=== PATIENT | female | born 1960 | race African-American/Black ===

== ENCOUNTER 2016-12-25 22:01 | Emergency (ER) | payer MEDICARE, OTHER ==
[~2016-12-25] VITALS: Ht 170.2 cm; Wt 79.4 kg
[2016-12-26 02:42] VITALS: BP 159/80
--- NOTE | 2016-12-27 14:53 | Emergency Room Report ---
History of Present Illness General Chief Complaint: Skin Rash/Abscess Source: Patient Present Illness HPI 56-year-old female presents ED for evaluation. Patient states she has multiple ulcers on her arms. Went to a clinic and was told to come the ER for further evaluation. Was told that she may have "flesh eating bacteria". Patient states she feels okay. Denies any fevers or chills. Denies pain. Patient admits to injecting drugs underneath the skin. Patient states that she has been on multiple antibiotics without resolution of the ulcers. No other aggravating relieving factors. Denies any other associated symptom Allergies: Coded Allergies: No Known Allergies (Unverified , 12/25/16) Patient History Past Medical History: none Past Surgical History: none Pertinent Family History: none Social History: Reports: drug use, Denies: alcohol use, smoking Last Menstrual Period: NONE Now: No Immunizations: UTD Reviewed Nursing Documentation: PMH: Agreed, PSxH: Agreed Nursing Documentation-PMH Hx Hypertension: Yes Review of Systems All Other Systems: negative except mentioned in HPI Physical Exam Vital Signs Date Time Temp Pulse Resp B/P Pulse Ox O2 Delivery O2 Flow Rate FiO2 12/25/16 22:07 97.9 113 18 159/80 95 Room Air Sp02 EP Interpretation: reviewed, normal General Appearance: no apparent distress, alert, GCS 15, non-toxic Head: normocephalic Eyes: bilateral eye PERRL, bilateral eye normal inspection ENT: normal ENT inspection Neck: normal inspection Respiratory: chest non-tender, lungs clear, normal breath sounds, speaking full sentences Cardiovascular #1: regular rate, rhythm, no edema Gastrointestinal: normal bowel sounds, non tender, soft, non-distended, no guarding, no rebound Rectal: deferred Genitourinary: no CVA tenderness Musculoskeletal: normal range of motion, non-tender, other - no crepitus\\ Neurologic: alert, oriented x3, responsive, motor strength/tone normal, sensory intact, speech normal Psychiatric: normal inspection Skin: other - multiple ulcerations noted to bilateral arms. in multiple stages of healing. non-erythematous. no discharge. no crepitus. Lymphatic: normal inspection Medical Decision Making Diagnostic Impression: Primary Impression: Abscess Additional Impression: Drug abuse ER Course 56-year-old female presents to ED with multiple ulcers noted to bilateral arms. Not resolving with antibiotics Differential-abscess, cellulitis, dermatitis Placed on chair. After initial history physical exam reveals a middle-aged female in no acute distress. On exam there are multiple ulcers noted to bilateral arms. In multiple stages of healing. Some appear fresh. No fluctuance or discharge. Patient appears well and nontoxic I explained to the patient given chronicity of symptoms I do not suspect "flesh eating bacteria". She also admits that some of the ulcers are new from recent injecting. The older ulcers do appear to be healing with abx I did want to check some blood work and provide some antibiotics here. Patient eloped from ER prior to IV placement or blood draw Last Vital Signs Date Time Temp Pulse Resp B/P Pulse Ox O2 Delivery O2 Flow Rate FiO2 12/25/16 22:07 97.9 113 18 159/80 95 Room Air Status: unchanged Disposition: ELOPED Condition: Stable Referrals: NOT CHOSEN ALLISON/,REFERRING (PCP) BRENNA IBANEZ M.D. December 27, 2016 14:53
== END 2016-12-26 02:42 | disposition left against medical advice (07) ==
LOC: EMR 22:40
DX: L03.114 Cellulitis of left upper limb (principal); L03.113 Cellulitis of right upper limb; L98.499 Non-pressure chronic ulcer of skin of other sites with unspecified severity; F19.10 Other psychoactive substance abuse, uncomplicated; I10 Essential (primary) hypertension
CPT/HCPCS: 99282

== ENCOUNTER 2017-05-30 18:47 | Emergency (ER) | payer MEDICARE, MEDICAID ==
[~2017-05-30] VITALS: Ht 170.2 cm; Wt 79.4 kg
[2017-05-30 20:40] VITALS: BP 163/85
--- NOTE | 2017-05-30 20:43 | Emergency Room Report ---
History of Present Illness General Chief Complaint: Skin Rash/Abscess Present Illness HPI 57 YO Female presents to the ED c/o 05/22 in severity progressive pain, swelling , and erythema of right forearm/hand x 3 days s/p IVDU. denies fevers or chills. Pt reports hx of Hep C. Denies fevers, chills, N/V. pt. denies trauma or fall. denies extremity weakness. Pt reports she has had tetanus within the past 5 years as she has had previous I & D procedures in that timeframe, pt. does not know the exact date. Denies numbness tingling or loss of sensation or gross motor movements of the extremities, incontinence of bowel or bladder. Denies CP, Palpitations, LOC, AMS, dizziness, Changes in Vision, Sensation, paresthesias, or a sudden severe headache. Allergies: Coded Allergies: No Known Allergies (Unverified , 12/25/16) Patient History Past Medical History: see triage record Past Surgical History: none Social History: Reports: drug use - IV opiates Now: No Reviewed Nursing Documentation: PMH: Agreed, PSxH: Agreed Nursing Documentation-PMH Hx Hypertension: Yes Review of Systems All Other Systems: negative except mentioned in HPI Physical Exam Vital Signs Date Time Temp Pulse Resp B/P (MAP) Pulse Ox O2 Delivery O2 Flow Rate FiO2 05/30/17 18:51 98.1 99 20 163/85 99 Room Air Sp02 EP Interpretation: reviewed, normal General Appearance: no apparent distress, alert, GCS 15, non-toxic Head: normocephalic, atraumatic Eyes: bilateral eye normal inspection, bilateral eye PERRL ENT: hearing grossly normal, normal voice Neck: full range of motion Respiratory: lungs clear, normal breath sounds, speaking full sentences Cardiovascular #1: regular rate, rhythm, normal capillary refill Rectal: deferred Musculoskeletal: back normal, gait/station normal, normal range of motion, inflammation - right dorsal forearm/wrist, erythema, increased temperature to palpation. , tender - superficial ttp to area of erythema and increased temperature of the dorsal right forearm/wrist. Neurologic: alert, oriented x3, responsive, motor strength/tone normal, sensory intact, normal gait, speech normal Psychiatric: judgement/insight normal, memory normal, mood/affect normal Skin: warm/dry, well hydrated, other - erythema, increased temperature to palpation, swelling noted to the distal dorsal right forearm and lateral right wrist non-circumfrential, no palpable fluctuance, no blisters, small 0.3cm superficial abrasion noted. Lymphatic: no adenopathy Medical Decision Making PA Attestation Dr. Perera is my supervising Physician whom patient management has been discussed with. Diagnostic Impression: Primary Impression: Cellulitis Qualified Codes: L03.113 - Cellulitis of right upper limb ER Course 57 YO Female presents to the ED c/o 05/22 in severity progressive pain, swelling , and erythema of right forearm/hand x 3 days s/p IVDU. denies fevers or chills. Pt reports hx of Hep C. Denies fevers, chills, N/V. pt. denies trauma or fall. denies extremity weakness. Pt reports she has had tetanus within the past 5 years as she has had previous I & D procedures in that timeframe, pt. does not know the exact date. Denies numbness tingling or loss of sensation or gross motor movements of the extremities, incontinence of bowel or bladder. Denies CP, Palpitations, LOC, AMS, dizziness, Changes in Vision, Sensation, paresthesias, or a sudden severe headache. Ddx considered but are not limited to cellulitis, lymphangitis, nec. fasciitis, musculoskeletal injury- fracture, d/L, gout just to name a few Vital signs: are WNL, pt. is afebrile H&PE are most consistent with cellulitis of the right wrist/forearm, no palpable fluctuance that would warrant incision. --erythema, increased temperature to palpation, swelling noted to the distal dorsal right forearm and lateral right wrist non-circumfrential, no palpable fluctuance, no blisters, small 0.3cm superficial abrasion noted. ORDERS: none required at this time, the diagnosis is clinical ED INTERVENTIONS: -Keflex PO -Bactrim PO -IBU PO -Pt is given strict ED return precautions for worsening of her current symptoms , or new symptoms. pt. is instructed to keep a close eye for progression of erythema. d/w pt. to follow up with PMD within 48 hours or return immediately to ED with any changes in her condition other than improvement. DISCHARGE: At this time pt. is stable for d/c to home. Will provide printed patient care instructions, and any necessary prescriptions. Care plan and follow up instructions have been discussed with the patient prior to discharge. Last Vital Signs Date Time Temp Pulse Resp B/P (MAP) Pulse Ox O2 Delivery O2 Flow Rate FiO2 05/30/17 18:51 98.1 99 20 163/85 99 Room Air Disposition: HOME, SELF-CARE Condition: Stable Scripts Ibuprofen* (MOTRIN*) 600 Mg Tablet 600 MG ORAL THREE TIMES A DAY, #30 TAB 0 Refills Prov: Kitty Lagos 05/30/17 Mupirocin Calcium (Bactroban) 15 Gm Cream..g. 1 APPLIC TOPIC THREE TIMES A DAY, #15 GM Prov: Kitty Lagos 05/30/17 Trimethoprim/Sulfamethoxazole 160/800* (BACTRIM DS TABLET*) 1 Each Tablet 1 TAB ORAL DAILY for 7 Days, #14 TAB Prov: Kitty Lagos 05/30/17 Cephalexin* (KEFLEX*) 500 Mg Capsule 500 MG ORAL EVERY 12 HOURS for 7 Days, #14 CAP 0 Refills Prov: Kitty Lagos 05/30/17 Referrals: NON PHYSICIAN (PCP) Patient Instructions: Cellulitis, [id number] Additional Instructions: Take medications as directed. Follow up with a Primary Care Provider within 48 hours, even if your symptoms have resolved. --Please review list of primary care clinics, if you do not already have a primary care provider Return sooner to ED if new symptoms occur, or current symptoms become worse. - Please note that this Emergency Department Report was dictated using [employer] mixer technology software, occasionally this can lead to erroneous entry secondary to interpretation by the dictation equipment. Kitty Lagos May 30, 2017 20:43
[2017-05-30] MEDS ORDERED: Bactrim DS (160mg/800mg) tab ORAL ONE (20:45)
[2017-05-30] MEDS ORDERED: Cephalexin 500mg cap ORAL ONE (20:45)
[2017-05-30] MEDS ORDERED: CEPHALEXIN500 MG ORAL (20:45)
[2017-05-30] MEDS ORDERED: BACTRIM DS TAB1 EAC1 ORAL (20:45)
[2017-05-30] MEDS ORDERED: BACTROBAN CR1 APPLIC TOPIC (20:45)
[2017-05-30] MEDS ORDERED: IBUPROFEN600 MG ORAL (20:49)
[2017-05-30 21:01] VITALS: BP 145/82
== END 2017-05-30 21:03 | disposition home or self-care (01) ==
LOC: EMR 20:27
DX: L03.113 Cellulitis of right upper limb (principal)
CPT/HCPCS: 99284

== ENCOUNTER 2017-06-09 17:22 | Emergency (ER) | payer MEDICARE, MEDICAID ==
[~2017-06-09] VITALS: Ht 170.2 cm; Wt 79.4 kg
[~2017-06-09 17:22] MED LIST: BACTRIM DS TAB1 EAC1 ORAL; BACTROBAN CR1 APPLIC TOPIC; CEPHALEXIN500 MG ORAL; IBUPROFEN600 MG ORAL
[2017-06-09] MEDS ORDERED: Tetanus/Diptheria/Pertussis Vaccine 0.5ml Syr IM ONE (18:15)
--- NOTE | 2017-06-09 18:25 | Emergency Room Report ---
History of Present Illness General Chief Complaint: Back Pain-No Injury Present Illness HPI 57-year-old female presents to the emergency department complaining of back pain that is 8/10 in severity located on the right side and radiates down into the right thigh intermittently x3 months with progression infrequency this past month. Patient reports fall 3 months ago but she was never evaluated for. Patient denies previous back injury. denies neck pain/stiffness or ALMEIDA. Denies recent spinal procedures, history of neoplastic disease, fevers, chills, abdominal pain, nausea, vomiting. Patient also reports continued swelling and some erythema to the right forearm there was previously diagnosed as cellulitis status post IV heroin use approximately one week ago. Patient still has one more day of antibiotic left. Patient reports symptoms are resolving however believes that additional antibiotics may be required. She denies discharge, crusting, bleeding, or open wound that is progressing in size. She states that on previous visit she believed that she had her tetanus however after thinking more about it she believes she may not be up to date. Denies numbness tingling or loss of sensation or gross motor movements of the extremities, incontinence of bowel or bladder. Denies CP, Palpitations, LOC, AMS, dizziness, Changes in Vision, Sensation, paresthesias, or a sudden severe headache. Allergies: Coded Allergies: No Known Allergies (Unverified , 12/25/16) Patient History Past Medical History: see triage record Past Surgical History: none Pertinent Family History: none Social History: Reports: drug use - IV heroin Now: No Reviewed Nursing Documentation: PMH: Agreed, PSxH: Agreed Nursing Documentation-PMH Hx Hypertension: Yes Review of Systems All Other Systems: negative except mentioned in HPI Physical Exam Vital Signs Date Time Temp Pulse Resp B/P (MAP) Pulse Ox O2 Delivery O2 Flow Rate FiO2 06/09/17 17:36 97.9 98 16 138/84 95 Room Air Sp02 EP Interpretation: reviewed, normal General Appearance: no apparent distress, alert, GCS 15, non-toxic Head: normocephalic, atraumatic Eyes: bilateral eye normal inspection, bilateral eye PERRL ENT: hearing grossly normal, normal voice Neck: full range of motion, no bony tend Respiratory: lungs clear, normal breath sounds, speaking full sentences Cardiovascular #1: regular rate, rhythm Gastrointestinal: non tender, soft, no guarding Rectal: deferred Genitourinary: no CVA tenderness Musculoskeletal: back normal, gait/station normal, normal range of motion, other - TTP to the right forearm, erythema and mild increased temperature in palpation noted, some induration, no fluctuance. , tender - Right lumbar paraspinal TTP to the musculature, and upper right glute, no midline spinal ttp , no obvious deformity, no evidence of infection. Neurologic: alert, oriented x3, responsive, motor strength/tone normal, sensory intact, speech normal Skin: no rash, warm/dry, well hydrated, other - TTP to the right forearm, erythema and mild increased temperature in palpation noted, some induration, no fluctuance. Medical Decision Making PA Attestation Dr. Perera is my supervising Physician whom patient management has been discussed with. Diagnostic Impression: Primary Impression: Sciatic nerve pain Qualified Codes: M54.31 - Sciatica, right side Additional Impression: Cellulitis of arm, right ER Course 57-year-old female presents to the emergency department complaining of back pain that is 8/10 in severity located on the right side and radiates down into the right thigh intermittently x3 months with progression infrequency this past month. Patient reports fall 3 months ago but she was never evaluated for. Patient denies previous back injury. denies neck pain/stiffness or ALMEIDA. Denies recent spinal procedures, history of neoplastic disease, fevers, chills, abdominal pain, nausea, vomiting. Patient also reports continued swelling and some erythema to the right forearm there was previously diagnosed as cellulitis status post IV heroin use approximately one week ago. Patient still has one more day of antibiotic left. Patient reports symptoms are resolving however believes that additional antibiotics may be required. She denies discharge, crusting, bleeding, or open wound that is progressing in size. She states that on previous visit she believed that she had her tetanus however after thinking more about it she believes she may not be up to date. Denies numbness tingling or loss of sensation or gross motor movements of the extremities, incontinence of bowel or bladder. Denies CP, Palpitations, LOC, AMS, dizziness, Changes in Vision, Sensation, paresthesias, or a sudden severe headache. Ddx considered but are not limited to Fracture, dislocation, contusion, epidural abscess, Sprain/Strain/Spasm, cellulitis, abscess Vital signs: are WNL, pt. is afebrile H&PE are most consistent with sciatica Pt. unable to tolerate straight leg raise. she is ambulatory, and has FROM with pain in some positions. ORDERS: X-ray not required at this time, no spinous process tenderness ED INTERVENTIONS: IM Toradol 60mg. Re-Evaluation: pt. states his pain has subsided with ED interventions DISCHARGE: At this time pt. is stable for d/c to home. Will provide printed patient care instructions, and any necessary prescriptions. Care plan and follow up instructions have been discussed with the patient prior to discharge. Last Vital Signs Date Time Temp Pulse Resp B/P (MAP) Pulse Ox O2 Delivery O2 Flow Rate FiO2 06/09/17 17:36 97.9 98 16 138/84 95 Room Air Disposition: HOME, SELF-CARE Condition: Stable Scripts Methocarbamol* (ROBAXIN*) 500 Mg Tablet 1000 MG PO TID for 7 Days, #14 TAB 0 Refills Prov: Kitty Lagos 06/09/17 Clindamycin Hcl (CLEOCIN HCL) 300 Mg Capsule 300 MG PO QID for 7 Days, #14 CAP Prov: Kitty Lagos 06/09/17 Referrals: NON PHYSICIAN (PCP) Patient Instructions: Back Pain, Adult, Cellulitis, Sciatica Additional Instructions: Take medications as directed. Follow up with a Primary Care Provider in 3-5 days, MRI may be indicated to fully evaluate the cause for your symptoms --Please review list of primary care clinics, if you do not already have a primary care provider Return sooner to ED if new symptoms occur, or current symptoms become worse. Do not drink alcohol, drive, or operate heavy machinery while taking Muscle Relaxer : Robaxin as this may cause drowsiness. - Please note that this Emergency Department Report was dictated using [employer] technology software, occasionally this can lead to erroneous entry secondary to interpretation by the dictation equipment. Kitty Lagos Jun 09, 2017 18:25
[2017-06-09] MEDS ORDERED: ROBAXIN500 MG PO (18:27)
[2017-06-09] MEDS ORDERED: CLEOCIN HCL300 MG PO (18:27)
[2017-06-09] MEDS ORDERED: Ketorolac 60mg Inj IM ONE (18:30)
[2017-06-09 18:51] VITALS: BP 125/80
== END 2017-06-09 18:51 | disposition home or self-care (01) ==
LOC: EMR 18:00
DX: M54.31 Sciatica, right side (principal); L03.113 Cellulitis of right upper limb; Z23 Encounter for immunization; I10 Essential (primary) hypertension; F11.90 Opioid use, unspecified, uncomplicated
CPT/HCPCS: 90471; 90715; 96372; 99283

== ENCOUNTER 2018-04-30 21:39 | Emergency (ER) | payer MEDICARE, MEDICAID ==
[~2018-04-30] VITALS: Ht 170.2 cm; Wt 79.4 kg
[~2018-04-30 21:39] MED LIST changes: +CLEOCIN HCL300 MG PO; +ROBAXIN500 MG PO
[2018-04-30 22:05] VITALS: BP 126/70
--- NOTE | 2018-04-30 22:32 | Emergency Room Report ---
History of Present Illness General Chief Complaint: Back Pain-No Injury Source: Patient Present Illness HPI Is a 58-year-old female with a history hypertension. She also has history of chronic lower back pain. She presents with 2 chief complaints. First complaint is lower back pain. This is a chronic issue. She had an MRI done 4 days ago and she wanted me to read the CD discs that the MRI is on. Pain is chronic in nature. Lower back to the hip area. She is currently in pain management. She also wanted cortisone shot. Denies any fever chills but denies any nausea vomiting. No incontinence of bowel or urine. Pain is 9 out of 10. No other complaint. Her second complaint is that she been EKG. This is for preop for colonoscopy done next week. She has no chest pain. No shortness of breath. No other complaint. Allergies: Coded Allergies: No Known Allergies (Unverified , 12/25/16) Patient History Past Medical History: see triage record, old chart reviewed, HTN Past Surgical History: other Pertinent Family History: none Social History: Denies: smoking Now: No Immunizations: other Reviewed Nursing Documentation: PMH: Agreed; PSxH: Agreed Nursing Documentation-PMH Hx Hypertension: Yes Review of Systems Eye: Denies: eye pain, blurred vision ENT: Denies: ear pain, nose congestion, throat swelling Respiratory: Denies: cough, shortness of breath Cardiovascular: Denies: chest pain, palpitations Gastrointestinal: Denies: abdominal pain, diarrhea, nausea, vomiting Musculoskeletal: Reports: back pain; Denies: joint pain Skin: Denies: rash Neurological: Denies: headache, numbness Endocrine: Denies: increased thirst, increased urine Hematologic/Lymphatic: Denies: easy bruising All Other Systems: negative except mentioned in HPI Physical Exam Vital Signs Date Time Temp Pulse Resp B/P (MAP) Pulse Ox O2 Delivery O2 Flow Rate FiO2 04/30/18 21:47 98.2 105 18 159/68 95 Room Air 98.2 vitals with high blood pressure Sp02 EP Interpretation: reviewed, normal General Appearance: well appearing, no apparent distress, alert Head: normocephalic, atraumatic Eyes: bilateral eye PERRL, bilateral eye EOMI ENT: hearing grossly normal, normal pharynx Neck: full range of motion, supple, no meningismus Respiratory: chest non-tender, lungs clear, normal breath sounds Cardiovascular #1: regular rate, rhythm, no murmur Gastrointestinal: normal bowel sounds, non tender, no mass, no organomegaly, no bruit, non-distended Musculoskeletal: back normal - tenderness to the lower back, gait/station normal, normal range of motion Neurologic: alert, oriented x3 Psychiatric: mood/affect normal Skin: warm/dry Medical Decision Making Diagnostic Impression: Primary Impression: Back pain Qualified Codes: M54.5 - Low back pain; G89.29 - Other chronic pain ER Course Patient with lower back pain. This is chronic in nature. Explained to the patient that I cannot read the MRI because I'm not a radiologist. Is outside my scope of practice. Explained to her that she needs to follow-up with her doctor for the report. There is no emergent issue going on right now. I see no evidence of any cauda equina syndrome, spinal after abscess or neoplastic process. I will hold off any pain in the case and since she is already in pain management. Also explained to the patient that we do not give up your shots here in the ER. This is through her pain specialist. I did an EKG for patient. She had an authorization/referral from her doctor for EKG done. It was dated last month. It appeared that she had a couple of appointments that she never kept for EKG. She had dates marked on her paperwork. We'll discharge home. EKG Diagnostic Results Rate: normal Rhythm: NSR ST Segments: no acute changes Last Vital Signs Date Time Temp Pulse Resp B/P (MAP) Pulse Ox O2 Delivery O2 Flow Rate FiO2 04/30/18 22:05 98.2 100 18 126/70 95 Room Air 98.2 Status: unchanged Disposition: HOME, SELF-CARE Condition: Stable Patient Instructions: Back Pain, Adult Additional Instructions: Follow-up with your doctor as scheduled for report on MRI. Follow-up with your stained glass painter. Return if symptom worsen. WESLEY HERNANDEZ M.D. Apr 30, 2018 22:32
[2018-04-30 22:55] VITALS: BP 125/71
--- NOTE | 2018-05-02 18:58 | Cardiology Report ---
APPROVED REPORT EKG Measurement Heart [id number] Normal sinus rhythm Possible Left atrial enlargement Incomplete right bundle branch block Cannot rule out Anterior infarct, age undetermined Abnormal ECG
== END 2018-04-30 22:55 | disposition home or self-care (01) ==
LOC: EMR 22:47
DX: M54.5 Low back pain (principal); G89.29 Other chronic pain; I10 Essential (primary) hypertension
CPT/HCPCS: 93005; 99283

== ENCOUNTER 2018-06-13 14:43 | Emergency (ER) | payer MEDICARE, OTHER ==
[~2018-06-13] VITALS: Ht 170.2 cm; Wt 80.3 kg
[2018-06-13] MEDS ORDERED: Morphine Sulfate 2mg/ml Inj IVP ONE (15:15)
[2018-06-13] MEDS ORDERED: Isovue-300 100ml vial INJ PRN (15:15)
--- NOTE | 2018-06-13 15:27 | Emergency Room Report ---
History of Present Illness General Chief Complaint: Lower Back Pain or Injury Source: Patient Present Illness HPI 58-year-old female patient presents ER with multiple complaints. Patient reports she has had diarrhea for the past 3 days, states diarrhea is "dark" and continuous. Denies seeing blood in stool. Reports had diarrhea 3 weeks ago and was given Lomotil that would help with her symptoms. Reports symptoms stopped before returning. Reports abdominal discomfort during this time. Denies vomiting. Denies history of GI problems in the past. denies recent travel. Denies contacts with similar symptoms. Also complaining of left-sided hip pain radiating down to her leg. Reports pain is been there for over 2 months, has seen her primary care provider and discuss treatment with them at that time. States had MRI done showing herniated discs, is awaiting appointment next week with new roller painter. Denies dysuria, hematuria. Denies bowel or bladder incontinence. Reports able ambulate. Denies fever, chest pain, shortness of breath. denies recent injury or fall. Allergies: Coded Allergies: No Known Allergies (Unverified , 12/25/16) Patient History Past Medical History: see triage record Now: No Reviewed Nursing Documentation: PMH: Agreed; PSxH: Agreed Nursing Documentation-PMH Past Medical History: No History, Except For Hx Hypertension: Yes Review of Systems All Other Systems: negative except mentioned in HPI Physical Exam Vital Signs Date Time Temp Pulse Resp B/P (MAP) Pulse Ox O2 Delivery O2 Flow Rate FiO2 06/13/18 14:51 98.2 107 18 135/76 95 Room Air Sp02 EP Interpretation: reviewed, normal General Appearance: well appearing, no apparent distress, alert, GCS 15, non- toxic Head: normocephalic, atraumatic Eyes: bilateral eye normal inspection, bilateral eye PERRL ENT: hearing grossly normal, normal pharynx, no angioedema, normal voice, uvula midline, moist mucus membranes Neck: full range of motion Respiratory: lungs clear, normal breath sounds, no rhonchi, no respiratory distress, no accessory muscle use, no wheezing, speaking full sentences Cardiovascular #1: regular rate, rhythm, no edema Gastrointestinal: normal bowel sounds, soft, no mass, non-distended, no guarding, no rebound, tenderness - generalized and diffuse Genitourinary: no CVA tenderness Musculoskeletal: back normal, digits/nails normal, gait/station normal, normal range of motion, non-tender, no calf tenderness, pelvis stable, Ang's Sign negative Neurologic: alert, oriented x3, responsive, motor strength/tone normal, SLR negative, sensory intact Psychiatric: mood/affect normal Skin: no rash Lymphatic: no adenopathy Medical Decision Making PA Attestation Dr. Hameed is my supervising Physician whom patient management has been discussed with. Diagnostic Impression: Primary Impression: Chronic pain Additional Impressions: Diarrhea Uterine fibroid Hiatal hernia ER Course Pt. presents to the ED c/o abdominal pain, diarrhea and chronic back and hip pain. Ddx considered but are not limited to UTI, cholelithiasis, cholecystitis, pancreatitis, appendicitis, diverticulitis, constipation, SBO, drug use, abx use , sprain, strain, dislocation, chronic pain, drug seeking, cauda equina. No bowel or bladder incontinence, no recent injury or trauma, does not require imaging of spine at this time, low suspicion for cauda equina or fracture at this time, likely chronic pain, will provide pain medication. Begin abdominal pain workup. Provided patient with pain medication. Vital signs: are WNL, pt. is afebrile ORDERS: CBC, CMP, Lipase, UA, CT abdomen pelvis, Zofran, and medication. ER COURSE: CBC and CMP unremarkable, no elevation in WBCS Lipase WNL UA negative for infection, few WBCs, negative nitrites, patient denies dysuria, hematuria, low suspicion for infection. occult stool negative for blood. Coag studies unremarkable Discuss results with patient CT abdomen and pelvis with contrast small hiatal hernia, no appendicitis, calcified uterine fibroids. discussed results with patient. Follow-up with [facility] to discuss fibroids. Followup with specialist, contact information provided. Abdominal pain likely due to diarrhea symptoms. Due to chronicity of diarrhea symptoms, will provide patient with 3 day course of cipro to cover for possible infection. Transmitted prescription of [facility] to cover for possible C. difficile infection. Follow up GI specialist. Provided with contact information provided. Need further evaluation and treatment. Will provide patient with pain medication at discharge. States normally takes Tramadol for pain, CURES reviewed. last prescription given for 10 days on . Will provide prescription for a few days. follow-up with roller painter. Patient reports relief of pain symptoms with medication. ER precautions given. patient reports able to ambulate independently without difficulty. DISCHARGE: At this time pt. is stable for d/c to home. Patient resting comfortably, in no acute distress, nontoxic appearing, talking without difficulty. Rx provided to patient. Patient to take medications as instructed Will provide with patient care instructions and any necessary prescriptions. Care plan and follow-up instructions provided. Patient instructed to follow-up with primary care provider in 3 - 5 days. Patient questions asked and answered. Patient reports understanding and agreement to treatment plan. ER precautions given. Patient instructed to return to ER immediately for any new or worsening of symptoms including but not limited to increasing SOB, persistent fever, worsening of pain symptoms, intractable vomiting, blood in stool, urine, and/or emesis. - Please note that this Emergency Department Report was dictated using [employer] team member technology software, occasionally this can lead to erroneous entry secondary to interpretation by the dictation equipment. Labs Test 06/13/18 16:44 06/13/18 18:25 White Blood Count 8.9 K/UL (4.8-10.8) Red Blood Count 4.51 M/UL (4.20-5.40) Hemoglobin 15.0 G/DL (12.0-16.0) Hematocrit 42.1 % (37.0-47.0) Mean Corpuscular Volume 93 FL (80-99) Mean Corpuscular Hemoglobin 33.2 PG (27.0-31.0) Mean Corpuscular Hemoglobin Concent 35.6 G/DL (32.0-36.0) Red Cell Distribution Width 11.6 % (11.6-14.8) Platelet Count 166 K/UL (150-450) Mean Platelet Volume 6.7 FL (6.5-10.1) Neutrophils (%) (Auto) 45.6 % (45.0-75.0) Lymphocytes (%) (Auto) 42.8 % (20.0-45.0) Monocytes (%) (Auto) 8.1 % (1.0-10.0) Eosinophils (%) (Auto) 2.0 % (0.0-3.0) Basophils (%) (Auto) 1.5 % (0.0-2.0) Prothrombin Time 12.0 SEC (9.30-11.50) Prothromb Time International Ratio 1.1 (0.9-1.1) Activated Partial Thromboplast Time 23 SEC (23-33) Urine Color Yellow Urine Appearance Turbid Urine pH 5 (4.5-8.0) Urine Specific [place] 1.020 (1.005-1.035) Urine Protein 1+ (NEGATIVE) Urine Glucose (UA) Negative (NEGATIVE) Urine Ketones Negative (NEGATIVE) Urine Blood 3+ (NEGATIVE) Urine Nitrite Negative (NEGATIVE) Urine Bilirubin Negative (NEGATIVE) Urine Urobilinogen Normal MG/DL (0.0-1.0) Urine Leukocyte Esterase 1+ (NEGATIVE) Urine RBC 10-15 /HPF (0 - 2) Urine WBC 2-4 /HPF (0 - 2) Urine Squamous Epithelial Cells Few /LPF (NONE/OCC) Urine Bacteria Many /HPF (NONE) Sodium Level 137 MMOL/L (136-145) Potassium Level 4.0 MMOL/L (3.5-5.1) Chloride Level 103 MMOL/L (98-107) Carbon Dioxide Level 25 MMOL/L (21-32) Anion Gap 9 mmol/L (5-15) Blood Urea Nitrogen 7 mg/dL (7-18) Creatinine 0.8 MG/DL (0.55-1.30) Estimat Glomerular Filtration Rate > 60 mL/min (>60) Glucose Level 106 MG/DL (74-106) Calcium Level 9.9 MG/DL (8.5-10.1) Total Bilirubin 0.7 MG/DL (0.2-1.0) Aspartate Amino Transf (AST/SGOT) 44 U/L (15-37) Alanine Aminotransferase (ALT/SGPT) 34 U/L (12-78) Alkaline Phosphatase 113 U/L (46-116) Total Protein 8.5 G/DL (6.4-8.2) Albumin 3.8 G/DL (3.4-5.0) Globulin 4.7 g/dL Albumin/Globulin Ratio 0.8 (1.0-2.7) Lipase 146 U/L (73-393) Stool Occult Blood Negative (NEGATIVE) CT/MRI/US Diagnostic Results CT/MRI/US Diagnostic Results : Imaging Test Ordered: CT abdomen and pelvis Impression small hiatal hernia appendix not seen, no secondary signs of appendicitis Calcified uterine fibroids Last Vital Signs Date Time Temp Pulse Resp B/P (MAP) Pulse Ox O2 Delivery O2 Flow Rate FiO2 06/13/18 14:51 98.2 107 18 135/76 95 Room Air Status: improved Disposition: HOME, SELF-CARE Condition: Stable Scripts Metronidazole* (FLAGYL*) 500 Mg Tablet 500 MG ORAL THREE TIMES A DAY for 10 Days, #30 TAB 0 Refills Prov: Tru Cordoba 06/13/18 Ciprofloxacin* (CIPRO*) 500 Mg Tablet 500 MG PO BID for 3 Days, #6 TAB Prov: Tru Cordoba 06/13/18 Tramadol Hcl* (ULTRAM*) 50 Mg Tablet 50 MG ORAL Q6H PRN for For Pain, #12 TAB 0 Refills Prov: Tru Cordoba 06/13/18 Patient Instructions: Chronic Back Pain, Diarrhea, Adult, [id number], Herniated Disk, [id number], Uterine Fibroids, [id number] Additional Instructions: Followup with primary care provider in 3 -5 days. Follow-up with GI specialist. Discuss further treatment at that time. Follow-up with [facility] specialist to discuss fibroids. Avoid spicy foods, avoid dairy foods. BRAT diet: bananas, rice, apple sauce, toast. Consider Immodium for diarrhea and Tylenol for pain symptoms. Take medications as directed. Patient questions asked and answered. ER precautions given, patient instructed to return to ER immediately for any new or worsening of symptoms. Tru Cordoba Jun 13, 2018 15:27
[2018-06-13 16:59] LABS: BASOPHILS % (AUTO) 1.5 % (0.0-2.0); HEMATOCRIT 42.1 % (37.0-47.0); LYMPHOCYTES % (AUTO) 42.8 % (20.0-45.0); MEAN CORPUSCULAR VOLUME 93 FL (80-99); MONOCYTES % (AUTO) 8.1 % (1.0-10.0); NEUTROPHILS % (AUTO) 45.6 % (45.0-75.0); PLATELET COUNT 166 K/UL (150-450); RED BLOOD COUNT 4.51 M/UL (4.20-5.40); RED CELL DISTRIBUTION WIDTH 11.6 % (11.6-14.8); WHITE BLOOD COUNT 8.9 K/UL (4.8-10.8)
[2018-06-13 17:00] LABS: APPEARANCE,URINE TURBID; BILIRUBIN, URINE NEGATIVE (NEGATIVE); GLUCOSE, URINE (UA) NEGATIVE (NEGATIVE); KETONES,URINE NEGATIVE (NEGATIVE); LEUKOCYTE ESTERASE ,URINE 1+ (NEGATIVE); NITRITE,URINE NEGATIVE (NEGATIVE); PH,URINE 5 (4.5-8.0); PROTEIN,URINE 1+ (NEGATIVE); UROBILINOGEN,URINE NORMAL MG/DL (0.0-1.0)
[2018-06-13 17:02] LABS: COLOR,URINE YELLOW
[2018-06-13 17:09] LABS: ANION GAP 9 mmol/L (5-15); BLOOD UREA NITROGEN 7 mg/dL (7-18); CALCIUM 9.9 MG/DL (8.5-10.1); CARBON DIOXIDE 25 MMOL/L (21-32); CHLORIDE 103 MMOL/L (98-107); CREATININE 0.8 MG/DL (0.55-1.30); INR 1.1 (0.9-1.1); SODIUM 137 MMOL/L (136-145)
[2018-06-13 17:13] LABS: ALANINE AMINOTRANSFERASE 34 U/L (12-78); ALBUMIN 3.8 G/DL (3.4-5.0); ALBUMIN/GLOBULIN RATIO 0.8 (1.0-2.7); ALKALINE PHOSPHATASE 113 U/L (46-116); ASPARTATE AMINO TRANSFERASE 44 U/L (15-37); BILIRUBIN,TOTAL 0.7 MG/DL (0.2-1.0)
[2018-06-13] MEDS ORDERED: traMADol 50mg tab ORAL ONE (19:45)
[2018-06-13] MEDS ORDERED: TRAMADOL HCL50 MG ORAL (19:54)
[2018-06-13] MEDS ORDERED: CIPRO500 MG PO (19:54)
[2018-06-13 19:57] VITALS: BP 140/88
[2018-06-13 20:05] VITALS: BP 140/88
[2018-06-13] MEDS ORDERED: FLAGYL500 MG ORAL (22:06)
--- NOTE | 2018-06-14 09:47 | Diagnostic Imaging Report ---
Indication: Abdominal pain Technique: Continuous helical transaxial imaging of the abdomen and pelvis was obtained from the lung bases to the pubic symphysis during intravenous contrast administration. Coronal 2-D reformats were also obtained. Study obtained in a Siemens sensation [address] Automatic Exposure Control was utilized. Total Dose length Product (DLP): 921.[address] Dose Index Volume (CTDIvol): 18.16 mGy Comparison: None Findings: Lung bases are clear. There is a small hiatal hernia. The liver, gallbladder, pancreas, spleen, kidneys appear unremarkable. There is no free fluid. Minimal calcification of the aorta noted. There are multiple uterine fibroids with calcification. The appendix is not visualized. There are no secondary signs of acute appendicitis. Vacuum phenomena within the lower lumbar facets and sacroiliac joints noted. IMPRESSION: No acute findings identified. Small hiatal hernia. 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
== END 2018-06-13 20:21 | disposition home or self-care (01) ==
LOC: EMR 15:37
DX: G89.29 Other chronic pain (principal); R19.7 Diarrhea, unspecified; D25.9 Leiomyoma of uterus, unspecified; K44.9 Diaphragmatic hernia without obstruction or gangrene; I10 Essential (primary) hypertension
CPT/HCPCS: 74177; 80053; 81003; 82270; 83690; 85025; 85610; 85730; 87086; 96361; 96374; 99284; J2270; Q9967

== ENCOUNTER 2018-07-31 15:06 | Outpatient (CLI) | payer MEDICARE, OTHER ==
[~2018-07-31 15:06] MED LIST changes: +CIPRO500 MG PO; +FLAGYL500 MG ORAL; +TRAMADOL HCL50 MG ORAL
--- NOTE | 2018-08-01 14:51 | GI Initial Consult Note ---
History of Present Illness General Date patient seen: Aug 01, 2018 Time patient seen: 14:46 Referring physician: WALK IN Reason for Consultation: MELENA Present Illness HPI This is a 58-year-old female patient walked into clinic today with complaint of constipation and melena for 5 months. The patient denies any nausea or vomiting or any abdominal pain. Has no history of endoscopic or colonoscopy. Denies any unintentional weight loss or changes in dietary habits. No signs of abuse or neglect. Patient is not fall risk. Home Meds Active Scripts Metronidazole* (FLAGYL*) 500 Mg Tablet, 500 MG ORAL THREE TIMES A DAY for 10 Days, #30 TAB 0 Refills Prov:Tru Cordoba 06/13/18 Ciprofloxacin* (CIPRO*) 500 Mg Tablet, 500 MG PO BID for 3 Days, #6 TAB Prov:Tru Cordoba 06/13/18 Tramadol Hcl* (ULTRAM*) 50 Mg Tablet, 50 MG ORAL Q6H PRN for For Pain, #12 TAB 0 Refills Prov:Tru Cordoba 06/13/18 Med list reviewed/reconciled: Yes Allergies: Coded Allergies: No Known Allergies (Unverified , 12/25/16) Patient History History Provided By: Patient, Medical Record [facility] Narrative Uterine fibroids Chronic back pain Hypertension Ovarian cyst Pertinent Family History: none Social History Narrative The patient is a alcohol abuser, states that she drinks wine Patient is a tobacco user, half a pack per day The patient admits to using methamphetamines Review of Systems All Other Systems: negative except mentioned in HPI Physical Exam Sp02 EP Interpretation: reviewed, normal General Appearance: well appearing, no apparent distress, alert Head: normocephalic EENT: PERRL/EOMI, normal ENT inspection Neck: supple Respiratory: normal breath sounds, no respiratory distress Cardiovascular: normal rate Gastrointestinal: normal inspection, non tender, soft, normal bowel sounds, non -distended Rectal: deferred Genitourinary: no CVA tenderness Musculoskeletal: normal inspection, back normal Neurologic: normal inspection, alert, oriented x3, responsive Psychiatric: normal inspection, judgement/insight normal, memory normal Skin: normal inspection, normal color, no rash, warm/dry, palpation normal, well hydrated Lymphatic: normal inspection, no adenopathy GI: Plan Problems: (1) Melena (2) Upper GI bleed (3) Peptic ulcer disease (4) Constipation (5) Fibroid (6) Hypertension (7) Chronic back pain (8) Ovarian cyst Plan EGD colonoscopy to be scheduled on August 07. - CLD & (Nulytely/Suprep/Movi-Prep) prep instructions given and acknowledged by patient. - NPO @ MA day prior procedure explained. Will follow with additional recs post procedure. Seen with Dr. Sullivan. Thank you for this patient referral. The patient was seen and examined at bedside and all new and available data was reviewed in the patients chart. I agree with the above findings, impression and plan. (Patient seen earlier today. Signature stamp does not reflect patient encounter time.). - MD Imani Sparks,[facility] WILLOW MACHINE OPERATOR Aug 01, 2018 14:51
[2018-08-01] MEDS ORDERED: OXYCODONE HCL5 M2 ORAL (15:53)
[2018-08-01] MEDS ORDERED: MIRALAX17 G2 ORAL (15:53)
== END 2018-07-31 15:36 | disposition home or self-care (01) ==
LOC: PAN 15:06
DX: K59.00 Constipation, unspecified (principal); K92.1 Melena; K27.9 Peptic ulcer, site unspecified, unspecified as acute or chronic, without hemorrhage or perforation; D25.9 Leiomyoma of uterus, unspecified; I10 Essential (primary) hypertension; G89.29 Other chronic pain; M54.9 Dorsalgia, unspecified; N83.209 Unspecified ovarian cyst, unspecified side; F17.210 Nicotine dependence, cigarettes, uncomplicated

== ENCOUNTER 2018-08-08 08:18 | Day surgery (SDC) | payer MEDICARE, MEDICAID ==
[2018-08-08] VITALS (9 sets, daily range): BP systolic 146–166; BP diastolic 66–90
[~2018-08-08] VITALS: Ht 170.2 cm; Wt 74.8 kg
[~2018-08-08 08:18] MED LIST changes: +MIRALAX17 G2 ORAL; +OXYCODONE HCL5 M2 ORAL
[2018-08-08] MEDS ORDERED: AMLODIPINE BES2.5 MG ORAL (08:53)
[2018-08-08] MEDS ORDERED: MULTIVITAMINS1 EAC2 ORAL (08:54)
[2018-08-08] MEDS ORDERED: VITAMIN D400 INTLU ORAL (08:55)
[2018-08-08] MEDS ORDERED: Vit B6 PO (08:56)
[2018-08-08] MEDS ORDERED: Propofol 200mg/20ml IV ONE (09:45)
[2018-08-08] MEDS ORDERED: Lidocaine 1% MPF 10mg/ml 5ml ONE (09:45)
[2018-08-08] MEDS ORDERED: Atropine Inj 1mg/10ml Syr IV PRN (10:00)
[2018-08-08] MEDS ORDERED: Midazolam 2mg/2ml Inj IVP PRN (10:00)
[2018-08-08] MEDS ORDERED: DiphenhydrAMINE 50mg/ml Inj IVP PRN (10:00)
[2018-08-08] MEDS ORDERED: fentaNYL 100 mcg/2 mL IV PRN (10:00)
--- NOTE | 2018-08-08 10:04 | Pre-Procedure Note/Attestation ---
Pre-Procedure Note/Attestation Complete Prior to Procedure Planned Procedure: not applicable Procedure Narrative: esophagogastroduodenoscopy and colonoscopy Indications for Procedure Pre-Operative Diagnosis: screening colon, GERD Attestation I attest that I discussed the nature of the procedure; its benefits; risks and complications; and alternatives (and the risks and benefits of such alternatives ), prior to the procedure, with the patient (or the patient's legal outside dealer sales representative). I attest that, if there was a reasonable possibility of needing a blood transfusion, the patient (or the patient's legal outside dealer sales representative) was given the [facility] standardized written summary, pursuant to the [place] Blood Safety Act ([place] Health and Safety Code # 1645, as amended). I attest that I re-evaluated the patient just prior to the surgery and that there has been no change in the patient's H&P, except as documented below: Jerome Sullivan MD Aug 08, 2018 10:04
--- NOTE | 2018-08-08 10:05 | Short Stay Surgery H&P ---
History of Present Illness History of Present Illness Chief Complaint see recent office note HPI Eileen Polk is a 58 year old female who was admitted on for Constipation & Abdominal Pain Patient History Allergies: Coded Allergies: No Known Allergies (Unverified , 12/25/16) Medication History Scheduled Amlodipine Besylate* (Amlodipine Besylate*), 2.5 MG ORAL DAILY, (Reported) Multivitamins* (Multivitamins*), 1 TAB ORAL DAILY, (Reported) Polyethylene Glycol 3350* (Miralax*), 17 GM ORAL DAILY, (Reported) Vitamin D (Vitamin D3), 400 UNITS ORAL DAILY, (Reported) [Vit B6], 1 TAB-CAP PO DAILY, (Reported) Scheduled PRN Oxycodone Hcl* (Oxycodone Hcl*), Unknown Dose ORAL Q4H PRN for For Pain, ( Reported) Discontinued Medications Ciprofloxacin* (Cipro*), 500 MG PO BID Discontinued Reason: Therapy completed Metronidazole* (Flagyl*), 500 MG ORAL THREE TIMES A DAY Discontinued Reason: Therapy completed Tramadol Hcl* (Ultram*), 50 MG ORAL Q6H PRN for For Pain Discontinued Reason: MD discontinued med Physical Exam Vital Signs Last Vital Signs Date Time Temp Pulse Resp B/P (MAP) Pulse Ox O2 Delivery O2 Flow Rate FiO2 08/08/18 09:44 Room Air 08/08/18 09:40 98.3 73 18 156/81 99 Plan Attestation Are the patient's medical conditions optimized for surgery? Jerome Sullivan MD Aug 08, 2018 10:05
--- NOTE | 2018-08-08 10:19 | Anethesia Preoperative Eval ---
Anesthesia Pre-op PMH/ROS General Date of Evaluation: Aug 08, 2018 Time of Evaluation: 09:40 Anesthesiologist: milad ASA Score: ASA 3 Mallampati Score Class I : Soft palate, uvula, fauces, pillars visible Class II: Soft palate, uvula, fauces visible Class III: Soft palate, base of uvula visible Class IV: Only hard plate visible Mallampati Classification: Class II Surgeon: lucio Diagnosis: constipation, abdominal pain Surgical Procedure: egd/colonoscopy Anesthesia History: none Social History: current smoker Family History: no anesthesia problems Allergies: Coded Allergies: No Known Allergies (Unverified , 12/25/16) Medications: see eMAR Patient NPO?: Yes Past Medical History Cardiovascular: Reports: HTN, arrhythmia - occasional pvc with sinus rhythm Pulmonary: Reports: COPD Gastrointestinal/Genitourinary: Reports: other - hiatal hernia, ugib, pud PSxH Narrative: appendectomy Anesthesia Pre-op Phys. Exam Physician Exam Last Vital Signs Date Time Temp Pulse Resp B/P (MAP) Pulse Ox O2 Delivery O2 Flow Rate FiO2 08/08/18 09:44 Room Air 08/08/18 09:40 98.3 73 18 156/81 99 Constitutional: NAD Neurologic: CN 2-12 intact Cardiovascular: RRR Respiratory: CTA Gastrointestinal: S/NT/ND Airway Exam Mallampati Score: Class II MO: full Neck: flexible TMD: 2fb ROM: full Teeth: missing Dentures: upper, lower Anesthesia Pre-op A/P Studies Pre-op Studies: EKG - sinus rhythm w/ occ pvcs Risk Assessment & Plan Assessment: asa3 Plan: mac Status Change Before Surgery: No Pre-Antibiotics Drug: Tiffanie Nicolas MD Aug 08, 2018 10:19
--- NOTE | 2018-08-08 10:29 | Endoscopy Procedure Note ---
Endoscopy Procedure Note General Indication for Procedure: screening colon, GERD Procedures Performed: EGD, colonoscopy Operative Findings/Diagnosis: gastritis, emorhoids Specimen: yes Pt Tolerated Procedure Well: Yes Estimated Blood Loss: none Anesthesia Anesthesiologist: kane Anesthesia: MAC Inserted Devices Implant(s) used?: No Quality Quality of Bowel Preparation: Good Did scope reach the cecum?: Yes Was there any complications?: No GI Core Measures 50 yrs or older w/o bx or poly: No 10yrs. F/U not recommended: Yes If not recommended, why?: Above average risk 10 yrs. F/U needed: Yes 18 years or older w/prev. colo: No Jerome Sullivan MD Aug 08, 2018 10:29
--- NOTE | 2018-08-08 10:47 | Immediate Post-Op Evaluation ---
Immediate Post-Op Evalulation Immediate Post-Op Evalulation Procedure: egd/colonoscopy/bx Date of Evaluation: Aug 08, 2018 Time of Evaluation: 10:45 IV Fluids: 400ml 0.9ns Blood Products: none Estimated Blood Loss: negligible Blood Pressure Systolic: 147 Blood Pressure Diastolic: 66 Pulse Rate: 62 Respiratory Rate: 18 O2 Sat by Pulse Oximetry: 100 Temperature (Fahrenheit): 97.0 Pain Score (1-10): 0 Nausea: No Vomiting: No Complications none Patient Status: awake, reacts, patent Hydration Status: adequate Drug: Tiffanie Nicolas MD Aug 08, 2018 10:47
--- NOTE | 2018-08-08 10:48 | 48 Hour Post Anesthesia Eval ---
Post Anesthesia Evaluation Procedure: egd/colonoscopy/bx Date of Evaluation: Aug 08, 2018 Time of Evaluation: 10:47 Blood Pressure Systolic: 144 0: 66 Pulse Rate: 65 Respiratory Rate: 18 Temperature (Fahrenheit): 97.0 O2 Sat by Pulse Oximetry: 100 Airway: patent Nausea: No Vomiting: No Pain Intensity: 0 Hydration Status: adequate Cardiopulmonary Status: stable Mental Status/LOC: patient returned to baseline Post-Anesthesia Complications: none Follow-up care needed: N/A Tiffanie Rodríguez MD Aug 08, 2018 10:48
--- NOTE | 2018-08-08 15:45 | Procedure Note ---
DATE OF PROCEDURE: 08/08/2018 SURGEON: Jerome Sullivan M.D. PROCEDURE: Upper endoscopy with biopsy and colonoscopy. ANESTHESIA: Per Dr. Lane. INSTRUMENT: Olympus adult flexible upper endoscope and colonoscope. INDICATION: Screening colonoscopy evaluation, chronic constipation, chronic GERD. The procedure, risks, benefits, and possible consequences, including hemorrhage, aspiration, perforation and infection, and alternative treatments, were explained to the patient/legal guardian by Dr. Jerome Sullivan and the patient/legal guardian understood and accepted these risks. DESCRIPTION OF PROCEDURE: After informed consent was obtained and the patient was adequately sedated, Olympus upper endoscope was advanced from the mouth into the second portion of the duodenum and retroflexion was performed in the stomach GE junction was found to be about 38 cm from the incisors. There was some irregularity at the Z-line without any obvious esophagitis. No large hiatal hernia. In the stomach, there was diffuse gastritis. Random biopsy from antrum and body was obtained to rule out H. pylori infection. At this time, the upper endoscope was retrieved and the patient was turned over for colonoscopy. First rectal exam was performed which was positive for internal hemorrhoids. Then, the scope was advanced from rectum into the cecum and then subsequently in the terminal ileum. Quality of prep overall was good. The patient had normal colonoscopy examination. No obvious mass, polyp or any other pathology was seen. Retroflexion of rectum showed evidence of internal hemorrhoids. SUMMARY OF FINDINGS: 1. Gastritis, status post biopsy. 2. Irregular Z-line. 3. Internal hemorrhoids, otherwise normal colonoscopy examination. RECOMMENDATIONS: Follow up biopsy results and treat accordingly. Jerome Sullivan M.D. DR: Anali JOB#: [id number] CC:
== END 2018-08-08 12:15 | disposition home or self-care (01) ==
LOC: GAS 08:18
DX: Z12.11 Encounter for screening for malignant neoplasm of colon (principal); K59.00 Constipation, unspecified; K21.9 Gastro-esophageal reflux disease without esophagitis; K64.8 Other hemorrhoids; F17.200 Nicotine dependence, unspecified, uncomplicated; I10 Essential (primary) hypertension; Z90.89 Acquired absence of other organs; K29.50 Unspecified chronic gastritis without bleeding
CPT/HCPCS: 43239; 93005; G0121; J2704; 94003; 94150

== ENCOUNTER 2018-09-19 14:42 | Outpatient (CLI) | payer MEDICARE, MEDICAID ==
[~2018-09-19 14:42] MED LIST changes: +AMLODIPINE BES2.5 MG ORAL; +MULTIVITAMINS1 EAC2 ORAL; +VITAMIN D400 INTLU ORAL; +Vit B6 PO
--- NOTE | 2018-09-24 09:25 | GI Progress Note ---
Assessment/Plan Problems: (1) Abdominal bloating ICD Codes: R14.0 - Abdominal distension (gaseous) SNOMED: 837504092 (2) Small intestinal bacterial overgrowth ICD Codes: K63.89 - Other specified diseases of intestine SNOMED: 494780178 (3) Constipation ICD Codes: K59.00 - Constipation, unspecified SNOMED: 63789432 Status: stable Status Narrative Discussed with Dr. Sullivan Assessment/Plan Xifaxan given Return to clinic in 3 months The patient was seen and examined at bedside and all new and available data was reviewed in the patients chart. I agree with the above findings, impression and plan. (Patient seen earlier today. Signature stamp does not reflect patient encounter time.). - Jerome Sullivan MD Subjective Subjective No abdominal pain No rectal bleeding No diarrhea Complaint of constipation and abdominal bloating Objective General Appearance: WD/WN, no apparent distress, alert Cardiovascular: normal rate Respiratory/Chest: normal breath sounds, no respiratory distress Abdominal Exam: normal bowel sounds, non tender, soft Extremities: normal range of motion, non-tender Charleen Diallo NP Sep 24, 2018 09:25
== END 2018-09-19 16:42 | disposition home or self-care (01) ==
LOC: PAN 14:42
DX: R14.0 Abdominal distension (gaseous) (principal); K63.89 Other specified diseases of intestine; K59.00 Constipation, unspecified
CPT/HCPCS: 99212

== ENCOUNTER 2019-08-29 22:55 | Emergency (ER) | payer MEDICARE, MEDICAID ==
[~2019-08-29] VITALS: Ht 170.2 cm; Wt 77.1 kg
[2019-08-29] MEDS ORDERED: LINZESS145 MCG PO (23:13)
[2019-08-29] MEDS ORDERED: CATAPRES0.2 MG ORAL (23:13)
[2019-08-29 23:31] VITALS: BP 184/92
--- NOTE | 2019-08-29 23:33 | NUR ---
ED Nurse Note: Patient walked in from home d/t elevated blood pressure. Patient denies dizziness or chest pain. No c/o chest pain. Patient aao x 4 and ambulatory. Patient placed in gown and buffer machine. No acute distress noted.
--- NOTE | 2019-08-29 23:35 | NUR ---
ED Nurse Note: ERMD at bedside.
[2019-08-29 23:48] VITALS: BP 172/95
--- NOTE | 2019-08-29 23:48 | NUR ---
ER DISCHARGE NOTE: Patient is cleared to be discharged per ERMD, pt is aox4, on room air, with stable vital signs. pt was given dc instructions, pt was able to verbalize understanding, pt id band removed. pt is able to ambulate with steady gait. pt took all belongings. no acute distress noted upon discharge.
--- NOTE | 2019-08-30 02:35 | Emergency Room Report ---
History of Present Illness General Chief Complaint: Hypertension Source: Patient Present Illness HPI Patient presents with reports that he was told by her depilatory painter 2 days ago to come to the emergency room after checking her blood pressure Patient does not recall what the blood pressure was denies any other associated symptoms denies any headache denies any chest pain Reports that after she was told to go to the emergency room she went home she was very tired and Was able to get rest At this time denies any focal weakness denies any visual changes patient has prescription for clonidine and benazepril however reports that she has not been taking the benazepril Allergies: Coded Allergies: No Known Allergies (Unverified , 12/25/16) Patient History Past Medical History: see triage record Reviewed Nursing Documentation: PMH: Agreed; PSxH: Agreed Nursing Documentation-PMH Past Medical History: No History, Except For Hx Hypertension: Yes Hx Cancer: No Hx Gastrointestinal Problems: Yes Hx Neurological Problems: No Review of Systems All Other Systems: negative except mentioned in HPI Physical Exam Vital Signs Date Time Temp Pulse Resp B/P (MAP) Pulse Ox O2 Delivery O2 Flow Rate FiO2 08/29/19 23:03 98.2 88 14 167/99 (121) 95 Room Air Sp02 EP Interpretation: reviewed, normal General Appearance: well appearing, no apparent distress Head: normocephalic, atraumatic Eyes: bilateral eye PERRL, bilateral eye EOMI ENT: hearing grossly normal, normal pharynx, TMs + canals normal, uvula midline Neck: full range of motion, supple, no meningismus, no bony tend Respiratory: lungs clear, normal breath sounds, no rhonchi, no respiratory distress, no retraction, no accessory muscle use Cardiovascular #1: normal peripheral pulses, regular rate, rhythm, no edema, no gallop, no JVD, no murmur Gastrointestinal: normal bowel sounds, non tender, soft, no mass, no organomegaly, non-distended, no guarding, no hernia, no pulsatile mass, no rebound Genitourinary: no CVA tenderness Musculoskeletal: normal inspection Neurologic: motor strength/tone normal, rn hyperbaric III-XII nml as tested, oriented x3 , sensory intact, responsive Psychiatric: mood/affect normal Skin: no rash Lymphatic: normal inspection, no adenopathy Medical Decision Making Diagnostic Impression: Primary Impression: Hypertension ER Course Multiple differentials and consideration at this time patient does not have any medical complaints Presents with reports that 2 days ago she was told her blood pressure was high and to present to the emergency room Upon initial arrival the patient's systolic blood pressure was at 160 patient remains without any medical complaints Appears to Have benazepril with her however has not been taking it she was encouraged to take all the medications that have been prescribed to her she needs to keep a log of her blood pressure and will follow closely with the primary physician next week Rhythm Strip Diag. Results EP Interpretation: yes Rate: 70 Rhythm: NSR, no PVC's, no ectopy Last Vital Signs Date Time Temp Pulse Resp B/P (MAP) Pulse Ox O2 Delivery O2 Flow Rate FiO2 08/29/19 23:48 98.3 85 17 172/95 98 Room Air Status: unchanged Disposition: HOME, SELF-CARE Condition: Improved Referrals: NON PHYSICIAN (PCP) PMD Patient Instructions: Managing Your High Blood Pressure, Hypertension Additional Instructions: Patient is provided with the discharge instructions notified to follow up with primary doctor in the next 2-3 days otherwise return to the er with any worsening symptoms. Please note that this report is being documented using [employer] technology. This can lead to erroneous entry secondary to incorrect interpretation by the dictating instrument. Nir Araujo DO Aug 30, 2019 02:35
== END 2019-08-29 23:48 | disposition home or self-care (01) ==
LOC: EMR 23:24
DX: I10 Essential (primary) hypertension (principal)
CPT/HCPCS: 99281

== ENCOUNTER 2020-05-03 08:24 | Emergency (ER) | payer MEDICARE, MEDICAID ==
[~2020-05-03] VITALS: Ht 170.2 cm; Wt 68.0 kg
[~2020-05-03 08:24] MED LIST changes: +CATAPRES0.2 MG ORAL; +LINZESS145 MCG PO
--- NOTE | 2020-05-03 08:49 | NUR ---
ED Nurse Note: Patient walked in to ER stated that something stuck in her right toe for 6 months, and unk object causing throbbing sensation. Patient AAO x4, VSS at this time.
[2020-05-03 09:19] VITALS: BP 122/76
--- NOTE | 2020-05-03 09:20 | NUR ---
ED Nurse Note: Patient left AMA, stated "I don't want wait for X ray." Patient left ER with steady gait, with all belongings. Patient AAO x4, VSS at this time.
--- NOTE | 2020-05-03 09:20 | NUR ---
AMA: SEE AMA FORM.
--- NOTE | 2020-05-04 14:39 | Emergency Room Report ---
History of Present Illness General Chief Complaint: Lower Extremity Injury Source: Patient Present Illness HPI 60-year-old female presents to ED stating there is something in her right toe. States she stepped on something about 6 months ago and wants to have it removed. States the pain is dull, 3 out of 10, nonradiating. States she is try to pull it out in the past but was unsuccessful. Is able to bear weight without difficulties. No other aggravating relieving factors. 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 COVID-19 Screening: Negative COVID-19 COVID-19 Testing Source: [facility] Patient History Past Medical History: HTN Pertinent Family History: none Social History: Denies: smoking, alcohol use, drug use Last Menstrual Period: na Now: No Immunizations: UTD Reviewed Nursing Documentation: PMH: Agreed; PSxH: Agreed Nursing Documentation-PMH Past Medical History: No History, Except For Hx Hypertension: Yes Hx Cancer: No Hx Gastrointestinal Problems: Yes Hx Neurological Problems: No Review of Systems All Other Systems: negative except mentioned in HPI Physical Exam Vital Signs Date Time Temp Pulse Resp B/P (MAP) Pulse Ox O2 Delivery O2 Flow Rate FiO2 05/03/20 08:34 98.4 93 18 122/76 (91) 96 Room Air Sp02 EP Interpretation: reviewed, normal General Appearance: no apparent distress, alert, GCS 15, non-toxic Head: normocephalic, atraumatic Eyes: bilateral eye normal inspection, bilateral eye PERRL ENT: hearing grossly normal, normal pharynx, no angioedema, normal voice Neck: full range of motion, supple/symm/no masses Respiratory: chest non-tender, lungs clear, normal breath sounds, speaking full sentences Cardiovascular #1: regular rate, rhythm, no edema Cardiovascular #2: 2+ carotid (R), 2+ carotid (L), 2+ radial (R), 2+ radial (L), 2+ dorsalis pedis (R), 2+ dorsalis pedis (L) Gastrointestinal: normal bowel sounds, non tender, soft, non-distended, no guarding, no rebound Rectal: deferred Genitourinary: normal inspection, no CVA tenderness Musculoskeletal: back normal, normal range of motion, gait/station normal, tender - scabbing noted to base R big toe. no palpable foreign body Neurologic: alert, motor strength/tone normal, oriented x3, sensory intact, responsive, speech normal Psychiatric: judgement/insight normal, memory normal, mood/affect normal, no suicidal/homicidal ideation Reflexes: 3+ bicep (R), 3+ bicep (L), 3+ tricep (R), 3+ tricep (L), 3+ knee (R), 3+ knee (L) Lymphatic: no adenopathy Medical Decision Making Diagnostic Impression: Primary Impression: Toe pain Qualified Codes: M79.674 - Pain in right toe(s) ER Course Hospital Course 60 yo F presents to ED c/o ? foreign body in R big toe Differential diagnoses include: Fracture, dislocation, sprain, contusion Clinical course Patient placed on stretcher. After initial history, physical exam reveals a female in no acute distress. There is some scabbing noted to the base of the right big toe. I felt no palpable foreign body. Explained to the patient that we will get an x-ray and see if there is a foreign body. However given that it is been 6 months unlikely amenable to bedside removal. Prior to receiving x-ray patient states she wanted to leave. Patient states she wishes to go home. Understands the risks of leaving. Patient has competency to make her own decisions. Signed AMA form. Diagnosis - toe pain patient left AMA Last Vital Signs Date Time Temp Pulse Resp B/P (MAP) Pulse Ox O2 Delivery O2 Flow Rate FiO2 05/03/20 09:19 98.4 18 122/76 96 Room Air 05/03/20 08:34 93 Status: unchanged Disposition: AGAINST MEDICAL ADVICE Condition: Stable Marco Valente MD May 04, 2020 14:39
== END 2020-05-03 09:20 | disposition left against medical advice (07) ==
LOC: EMR 09:07
DX: M79.674 Pain in right toe(s) (principal); I10 Essential (primary) hypertension
CPT/HCPCS: 99282

== ENCOUNTER 2020-06-22 22:48 | Emergency (ER) | payer MEDICARE, MEDICAID ==
[~2020-06-22] VITALS: Ht 170.2 cm; Wt 67.6 kg
--- NOTE | 2020-06-22 23:15 | NUR ---
ED Nurse Note: Pt ambulated to ED from home, c/o 7/10 abdominal pain and bloating for 2 weeks. Pt states she has been constipated for weeks with bright red blood at times. pt with unintentional weight lose of 15 lbs in 2 weeks. Pt also reporting yeast infection symptoms. Pt is A&Ox4, VSS
[2020-06-22 23:26] VITALS: BP 146/78
[2020-06-22] MEDS ORDERED: Metoclopramide 10mg/2ml Inj IVP ONE (23:45)
[2020-06-22] MEDS ORDERED: Lactulose 20gm/30ml UDC ORAL ONE (23:45)
[2020-06-22] MEDS ORDERED: Ketorolac 30mg Inj IV ONE (23:45)
[2020-06-22] MEDS ORDERED: DiphenhydrAMINE 50mg/ml Inj IVP ONE (23:45)
[2020-06-22 23:46] LABS: APPEARANCE,URINE SLIGHTLY CLOUDY; BILIRUBIN, URINE NEGATIVE (NEGATIVE); GLUCOSE, URINE (UA) NEGATIVE (NEGATIVE); KETONES,URINE NEGATIVE (NEGATIVE); LEUKOCYTE ESTERASE ,URINE 3+ (NEGATIVE); NITRITE,URINE NEGATIVE (NEGATIVE); PH,URINE 6 (4.5-8.0); PROTEIN,URINE 1+ (NEGATIVE); UROBILINOGEN,URINE NORMAL MG/DL (0.0-1.0)
[2020-06-22 23:59] LABS: COLOR,URINE YELLOW
[2020-06-23 00:13] LABS: EOSINOPHILS % (AUTO) 1.8 % (0.0-3.0); HEMATOCRIT 39.7 % (37.0-47.0); HEMOGLOBIN 13.6 G/DL (12.0-16.0); LYMPHOCYTES % (AUTO) 37.9 % (20.0-45.0); MEAN CORPUSCULAR VOLUME 94 FL (80-99); MONOCYTES % (AUTO) 9.6 % (1.0-10.0); NEUTROPHILS % (AUTO) 49.8 % (45.0-75.0); PLATELET COUNT 220 K/UL (150-450); RED BLOOD COUNT 4.22 M/UL (4.20-5.40); RED CELL DISTRIBUTION WIDTH 11.5 % (11.6-14.8); WHITE BLOOD COUNT 8.3 K/UL (4.8-10.8)
[2020-06-23 00:24] LABS: ANION GAP 5 mmol/L (5-15); BLOOD UREA NITROGEN 10 mg/dL (7-18); CALCIUM 9.1 MG/DL (8.5-10.1); CARBON DIOXIDE 29 MMOL/L (21-32); CHLORIDE 105 MMOL/L (98-107); POTASSIUM 3.9 MMOL/L (3.5-5.1); SODIUM 139 MMOL/L (136-145)
[2020-06-23 00:29] LABS: ALANINE AMINOTRANSFERASE 21 U/L (12-78); ALKALINE PHOSPHATASE 96 U/L (46-116); ASPARTATE AMINO TRANSFERASE 21 U/L (15-37); BILIRUBIN,TOTAL 0.2 MG/DL (0.2-1.0)
[2020-06-23] MEDS ORDERED: cefTRIAXone 1 GM in NS 55 ML IVPB ONE (00:45)
--- NOTE | 2020-06-23 00:45 | Emergency Room Report ---
History of Present Illness General Chief Complaint: Pain Source: Patient Present Illness HPI Patient presents with abdominal pain, constipation and weight loss over the last month. It is most pronounced the last 2-1/2 weeks. She has felt like she has a blockage in her rectum and a bump there. She says she has lost 15 pounds over the last 2 weeks. Initially she was on a diet but stopped dieting 2 weeks ago. She also feels bloating and fullness and gassy. She rates the pain in her stomach 7/10 and constant and aching not colicky. She denies fevers or chills. There is no nausea or vomiting. She was able to move her bowels but it was hard. She has been straining. She denies dysuria. When asked about drug use she states "I plead the fifth". She is worried that she has cancer. She had a negative colonoscopy 2 years ago. The patient suffers from chronic back pain. She apparently takes S[place]uma fairly regularly. She has had an epidural in the past. The back pain is not significant at this time. No sore throat, chest pain, palpitations, shortness of breath, rashes, depression, anxiety, dizziness, headache. 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 COVID-19 Screening: Negative COVID-19 COVID-19 Testing Source: [facility] Patient History Past Medical History: see triage record Past Surgical History: other - Ovarian surgery Social History: Reports: smoking, drug use; Denies: alcohol use Social History Narrative Here with spouse Now: No Reviewed Nursing Documentation: PMH: Agreed; PSxH: Agreed Nursing Documentation-PMH Past Medical History: No History, Except For Hx Hypertension: Yes Hx Cancer: No Hx Gastrointestinal Problems: Yes - hepatic fibrosis Hx Neurological Problems: No Review of Systems All Other Systems: negative except mentioned in HPI Physical Exam Vital Signs Date Time Temp Pulse Resp B/P (MAP) Pulse Ox O2 Delivery O2 Flow Rate FiO2 06/22/20 22:58 98.2 94 20 146/78 (100) 98 Room Air Sp02 EP Interpretation: reviewed, normal General Appearance: well appearing, no apparent distress, GCS 15 Head: normocephalic Eyes: bilateral eye normal inspection, bilateral eye PERRL, bilateral eye EOMI ENT: moist mucus membranes - Slightly dry Neck: supple Respiratory: normal inspection, lungs clear, normal breath sounds Cardiovascular #1: regular rate, rhythm Cardiovascular #2: 2+ radial (R) Gastrointestinal: normal inspection, normal bowel sounds, no mass, non- distended, no guarding, no rebound, tenderness - Diffuse Rectal: heme negative stool - Scant amount, hemorrhoids, other - No masses or irregularities in rectal mucosa Genitourinary: no CVA tenderness Musculoskeletal: back normal, normal range of motion, gait/station normal Neurologic: alert, oriented x3, grossly normal Psychiatric: mood/affect normal - Slightly anxious Skin: no rash, warm/dry Medical Decision Making Diagnostic Impression: Primary Impression: Abdominal pain Qualified Codes: R10.30 - Lower abdominal pain, unspecified Additional Impressions: Constipation Qualified Codes: K59.03 - Drug induced constipation UTI (urinary tract infection) Qualified Codes: N30.00 - Acute cystitis without hematuria Substance abuse ER Course Patient presents with abdominal pain, constipation and weight loss. Differential includes cancer, UTI, constipation, narcotic dependence, electrolyte imbalance, small bowel obstruction, hemorrhoids amongst others. Evaluation with labs. Treatment with IV hydration and analgesia without opiates, specifically Reglan, Benadryl and Toradol. Based on her history and physical the diagnosis of cancer is unlikely. Discussed the possibility of performing a CT scan. Based on her exam this is not clearly indicated. There are other factors which may explain her symptom complex. CBC normal. CMP normal. Urinalysis with too numerous to count white blood cells. Rocephin administered for urinary tract infection. Patient improved with treatment. Discussed findings with patient. Discussed etiologies of her symptom complex. Discussed treatment plan with patient and significant other. No medical emergency at this time. Patient stable for outpatient observation and treatment. Laboratory Tests Test 06/22/20 23:15 06/22/20 23:58 Urine Color Yellow Urine Appearance Slightly cloudy Urine pH 6 (4.5-8.0) Urine Specific [place] 1.020 (1.005-1.035) Urine Protein 1+ (NEGATIVE) H Urine Glucose (UA) Negative (NEGATIVE) Urine Ketones Negative (NEGATIVE) Urine Blood 2+ (NEGATIVE) H Urine Nitrite Negative (NEGATIVE) Urine Bilirubin Negative (NEGATIVE) Urine Urobilinogen Normal MG/DL (0.0-1.0) Urine Leukocyte Esterase 3+ (NEGATIVE) H Urine RBC 2-4 /HPF (0 - 2) H Urine WBC Tntc /HPF (0 - 2) H Urine Squamous Epithelial Cells Few /LPF (NONE/OCC) Urine Bacteria Many /HPF (NONE) H Urine Yeast Moderate /HPF (NONE) H Urine Opiates Screen Negative (NEGATIVE) Urine Barbiturates Screen Negative (NEGATIVE) Phencyclidine (PCP) Screen Negative (NEGATIVE) Urine Amphetamines Screen Positive (NEGATIVE) H Urine Benzodiazepines Screen Negative (NEGATIVE) Urine Cocaine Screen Negative (NEGATIVE) Urine Marijuana (THC) Screen Negative (NEGATIVE) White Blood Count 8.3 K/UL (4.8-10.8) Red Blood Count 4.22 M/UL (4.20-5.40) Hemoglobin 13.6 G/DL (12.0-16.0) Hematocrit 39.7 % (37.0-47.0) Mean Corpuscular Volume 94 FL (80-99) Mean Corpuscular Hemoglobin 32.3 PG (27.0-31.0) H Mean Corpuscular Hemoglobin Concent 34.3 G/DL (32.0-36.0) Red Cell Distribution Width 11.5 % (11.6-14.8) L Platelet Count 220 K/UL (150-450) Mean Platelet Volume 8.5 FL (6.5-10.1) Neutrophils (%) (Auto) 49.8 % (45.0-75.0) Lymphocytes (%) (Auto) 37.9 % (20.0-45.0) Monocytes (%) (Auto) 9.6 % (1.0-10.0) Eosinophils (%) (Auto) 1.8 % (0.0-3.0) Basophils (%) (Auto) 1.0 % (0.0-2.0) Sodium Level 139 MMOL/L (136-145) Potassium Level 3.9 MMOL/L (3.5-5.1) Chloride Level 105 MMOL/L (98-107) Carbon Dioxide Level 29 MMOL/L (21-32) Anion Gap 5 mmol/L (5-15) Blood Urea Nitrogen 10 mg/dL (7-18) Creatinine 1.0 MG/DL (0.55-1.30) Estimated Glomerular Filtration Rate > 60 mL/min (>60) Glucose Level 87 MG/DL (74-106) Calcium Level 9.1 MG/DL (8.5-10.1) Total Bilirubin 0.2 MG/DL (0.2-1.0) Aspartate Amino Transferase (AST) 21 U/L (15-37) Alanine Aminotransferase (ALT) 21 U/L (12-78) Alkaline Phosphatase 96 U/L (46-116) Total Protein 7.9 G/DL (6.4-8.2) Albumin 4.0 G/DL (3.4-5.0) Globulin 3.9 g/dL Albumin/Globulin Ratio 1.0 (1.0-2.7) Lipase 122 U/L (73-393) Microbiology Date/Time Source Procedure Growth Status 06/22/20 23:35 Vaginal Wet Prep - Final Complete Last Vital Signs Date Time Temp Pulse Resp B/P (MAP) Pulse Ox O2 Delivery O2 Flow Rate FiO2 06/23/20 01:20 98.2 68 18 135/70 98 Room Air Status: improved Disposition: HOME, SELF-CARE Condition: Improved Scripts Ibuprofen* (MOTRIN*) 600 Mg Tablet 600 MG ORAL Q6H PRN for FOR PAIN, #16 TAB 0 Refills Prov: Clint Vargas MD 06/23/20 Nitrofurantoin Monohyd/M-Cryst* (MACROBID 100 MG*) 100 Mg Capsule 100 MG ORAL EVERY 12 HOURS, #14 CAP Prov: Clint Vargas MD 06/23/20 Lactulose (LACTULOSE*) 20 Gm/30 Ml Solution 30 ML ORAL BID PRN for Constipation, #240 ML 0 Refills Prov: Clint Vargas MD 06/23/20 Referrals: NON PHYSICIAN (PCP) Clint Vargas MD Jun 23, 2020 00:45
[2020-06-23] MEDS ORDERED: LACTULOSE20 GM/301 ORAL (01:12)
[2020-06-23] MEDS ORDERED: IBUPROFEN600 M1 ORAL (01:12)
[2020-06-23] MEDS ORDERED: NITROFURANTOIN100 M2 ORAL (01:12)
[2020-06-23 01:20] VITALS: BP 135/70
--- NOTE | 2020-06-23 01:20 | NUR ---
ER DISCHARGE NOTE: Patient is cleared to be discharged per ERMD, pt is aox4, on room air, with stable vital signs. pt was given dc and prescription instructions, pt was able to verbalize understanding, pt id band and iv site removed without complications. pt is able to ambulate with steady gait. pt took all belongings.
== END 2020-06-23 01:20 | disposition home or self-care (01) ==
LOC: EMR 23:16
DX: R10.30 Lower abdominal pain, unspecified (principal); K59.03 Drug induced constipation; N30.00 Acute cystitis without hematuria; F15.10 Other stimulant abuse, uncomplicated; I10 Essential (primary) hypertension
CPT/HCPCS: 36415; 80053; 80307; 81003; 83690; 85025; 87086; 87210; 96361; 96365; 96375; 99284; J0696; J1200; J1885; J2765; J7030